=== PATIENT | male | born 1935 | race Caucasian/White ===

== ENCOUNTER 2016-09-30 18:57 | Inpatient (IN) | payer OTHER ==
[2016-09-30 19:26] VITALS: BMI 29.5
[2016-09-30] MEDS ORDERED: SODIUM CHLORIDE 1,000 ML IV STA (20:08)
--- NOTE | 2016-09-30 20:46 | PDOC ---
History of Present Illness - General History Source: Patient, EMS, Friend Exam Limitations: No Limitations - History of Present Illness Initial Comments: 09/30/16 20:47 The patient is an 81 year old male with past medical history of hyperlipidemia, BPH, and prostate carcinoma (follows up at [facility]) who arrives to the ED via EMS after being found on the floor of his house by his neighbors. As per neighbors, they hadnt seen the patient all day and knew he wasnt feeling well the day before. They state that when they found him, he was weak, cold, and had some slurred speech and was also covered in feces. They are unsure of how long the patient was on the floor for. The patient states he remembers feeling weak and falling, but cant recall hitting his head. He denies any pain, numbness/ tingling, nausea/vomiting/diarrhea, chest pain. He reports having orthopnea as well as urinary incontinence which he relates to his prostate carcinoma. Allergies: NKDA Social Hx: Patient lives alone at home. His neighbors check with him daily. He states he has a girlfriend in [place]. Contacts: Coco Nguyễn (neighbor): Brittany Steiner (friend): <Emelia Wallace - Last Filed: 10/01/16 00:21> - General History Source: Patient Exam Limitations: No Limitations <Connor Schmidt - Last Filed: 10/01/16 00:25> - General Chief Complaint: Injury Stated Complaint: FALL Time Seen by Provider: 09/30/16 19:17 Past History <Emelia Wallace - Last Filed: 10/01/16 00:21> - Past Medical History Disorders: Yes (BPH) Hypercholesterolemia: Yes - Surgical History Neurologic Surgery: Yes (SPINAL CYST REMOVAL) - Psycho/Social/Smoking Cessation Hx Anxiety: No Suicidal Ideation: No Smoking Status: No Smoking History: Never smoked Have you smoked in the past 12 months: No Number of Cigarettes Smoked Daily: 0 If you are a former smoker, when did you quit?: 30 YRS AGO Cigars Per Day: 1 Information on smoking cessation initiated: No Hx Alcohol Use: No Drug/Substance Use Hx: No Substance Use Type: None Hx Substance Use Treatment: No <Connor Schmidt - Last Filed: 10/01/16 00:25> - Past Medical History Allergies/Adverse Reactions: Allergies Allergy/AdvReac Type Severity Reaction Status Date / Time No Known Allergies Allergy Verified 09/30/16 19:22 Home Medications: Ambulatory Orders Atorvastatin Ca [Lipitor -] 20 mg PO DAILY 12/23/14 Tamsulosin HCl [Flomax] 0.4 mg PO DAILY 12/23/14 Review of Systems - Review of Systems Able to Perform ROS?: Yes Comments:: 09/30/16 20:47 GENERAL/CONSTITUTIONAL: Present: fever, weakness HEAD, EYES, EARS, NOSE AND THROAT: No change in vision. No ear pain or discharge. No sore throat. CARDIOVASCULAR: No chest pain or shortness of breath. RESPIRATORY: Present: orthopnea No cough, wheezing, or hemoptysis. GASTROINTESTINAL: No nausea, vomiting, diarrhea or constipation. GENITOURINARY: Present: incontinence No dysuria, frequency. MUSCULOSKELETAL: No joint or muscle swelling or pain. No neck or back pain. SKIN: No rash NEUROLOGIC: Present: LOC No headache, vertigo. ENDOCRINE: No increased thirst. No abnormal weight change. HEMATOLOGIC/LYMPHATIC: No anemia, easy bleeding, or history of blood clots. ALLERGIC/IMMUNOLOGIC: No hives or skin allergy. All Other Systems: Reviewed and Negative <Emelia Wallace - Last Filed: 10/01/16 00:21> *Physical Exam - Vital Signs Last Vital Signs Temp Pulse Resp BP Pulse Ox 98.0 F 70 16 182/56 98 09/30/16 19:22 09/30/16 19:22 09/30/16 19:22 09/30/16 19:22 09/30/16 19:22 - Physical Exam Comments: 09/30/16 20:49 GENERAL: Awake, febrile, and fully oriented, in no acute distress HEAD: 2 x 2 cm ecchymosis on superior scalp EYES: PERRLA, EOMI, sclera anicteric, conjunctiva clear ENT: Auricles normal inspection, hearing grossly normal, nares patent, oropharynx clear without exudates. Moist mucosa NECK: Normal ROM, supple, no lymphadenopathy, JVD, or masses LUNGS: Breath sounds equal, clear to auscultation bilaterally. No wheezes, and no crackles HEART: Regular rate and rhythm, normal S1 and S2, no murmurs, rubs or gallops ABDOMEN: Soft, nontender, normoactive bowel sounds. No guarding, no rebound. No masses EXTREMITIES: Normal range of motion, no edema. No clubbing or cyanosis. No cords, erythema, or tenderness NEUROLOGICAL: Cranial nerves II through XII grossly intact. Normal speech, normal gait SKIN: Warm, Dry, normal turgor, no rashes or lesions noted. <quocwilmerEmelia - Last Filed: 10/01/16 00:21> - Vital Signs Last Vital Signs Temp Pulse Resp BP Pulse Ox 98.0 F 70 16 182/56 98 09/30/16 19:22 09/30/16 19:22 09/30/16 19:22 09/30/16 19:22 09/30/16 19:22 <Connor Schmidt - Last Filed: 10/01/16 00:25> Heart Score/ECG Review #1 ECG reviewed & interpreted by me at: 19:15 09/30/16 21:23 NSR 75 with 1st degree AV block, no std,eber, QTC 448 msec <Connor Schmidt - Last Filed: 10/01/16 00:25> ED Treatment Course - LABORATORY CBC & Chemistry Diagram: 09/30/16 20:28 09/30/16 20:28 - RADIOLOGY Radiograph Interpretation: 10/01/16 00:21 EXAM: CT brain without contrast IMAGES: 85 INDICATION: Found down DATE OF SERVICE: 2016-09-30 23:32:32.0 COMPARISON: none FINDINGS: The ventricular system is midline and nondilated. Mild involutional changes are noted. There is no bleed, mass, extra-axial fluid collection or mass effect. No skull fracture or skull lesion is identified. The visualized paranasal sinuses and mastoid air cells are clear. <RodrigoEmelia - Last Filed: 10/01/16 00:21> - LABORATORY CBC & Chemistry Diagram: 09/30/16 20:28 09/30/16 20:28 - RADIOLOGY Radiology Studies Ordered: Category Date Time Status HEAD CT WITHOUT CONTRAST [CT] Stat CT Scan 09/30/16 20:07 Ordered CHEST X-RAY PORTABLE* [RAD] Stat Radiology 09/30/16 20:07 Ordered PELVIS [RAD] Stat Radiology 09/30/16 20:08 Ordered <Connor Schmidt - Last Filed: 10/01/16 00:25> Medical Decision Making - Medical Decision Making 10/01/16 00:21 Microblog sent to [facility] and call returned. Case discussed. <Emelia Wallace - Last Filed: 10/01/16 00:21> - Medical Decision Making 09/30/16 20:41 A portion of this note was documented by scribe services under my direction. I have reviewed the details of the note, within reason, and agree with the documentation with the following case summary and management plan written by me. Patient treated in the ED. Nursing notes are reviewed and incorporated into the medical decision-making. Vital signs reviewed. Peripheral IV access obtained by the nurse, laboratory studies are drawn and sent, reviewed and interpreted by myself. Vital Signs Temp Pulse Resp BP Pulse Ox 98.0 F 70 16 182/56 98 09/30/16 19:22 09/30/16 19:22 09/30/16 19:22 09/30/16 19:22 09/30/16 19:22 81-year-old male with history of BPH, prostate carcinoma, hyperlipidemia presents by EMS for found down on the ground. The patient lives by himself. Patient's neighbors had noted that the patient has been feeling generally weak for the last 2 days. They typically here from every day but noted today that they have not heard from them. They had broken down his door and saw him on his ground covered in feces. The patient is intermittent confused and noted to have a small ecchymosis on the top of his head. Patient denies any pain or headaches or nausea or vomiting. He does however complain of chills and generalized weakness. Likely I do not see an obvious fracture. However, I'm concerned for potentially sepsis and dehydration. Given that he's found on the ground, we'll send a CPK to rule out rhabdomyolysis. Patient needs a head CT to rule out intracranial hemorrhage. We'll need to rule out infection. Adult sepsis protocol initiated. Ultimately, the patient should be admitted to the hospital further evaluation. 10/01/16 00:23 CBC, BMP 09/30/16 20:28 09/30/16 20:28 CMP Sodium 135 mmol/L (136-145) L 09/30/16 20:28 Potassium 3.8 mmol/L (3.5-5.1) 09/30/16 20:28 Chloride 100 mmol/L (98-107) 09/30/16 20:28 Carbon Dioxide 22 mmol/L (21-32) 09/30/16 20:28 Anion Gap 13 (8-16) 09/30/16 20:28 BUN 36 mg/dL (7-18) H D 09/30/16 20:28 Creatinine 1.8 mg/dL (0.7-1.3) H D 09/30/16 20:28 Creat Clearance w eGFR 36.39 (>60) 09/30/16 20:28 Random Glucose 141 mg/dL (74-106) H D 09/30/16 20:28 Lactic Acid 3.2 mmol/L (0.4-2.0) H* 09/30/16 20:28 Calcium 8.7 mg/dL (8.5-10.1) 09/30/16 20:28 Total Bilirubin 1.2 mg/dL (0.2-1.0) H D 09/30/16 20:28 AST 75 U/L (15-37) H D 09/30/16 20:28 ALT 44 U/L (12-78) D 09/30/16 20:28 Alkaline Phosphatase 50 U/L (45-117) D 09/30/16 20:28 Creatine Kinase 1894 IU/L (39-308) H 09/30/16 20:28 Creatine Kinase Index 0.4 % (0.0-5.0) 09/30/16 20:28 CK-MB (CK-2) 7.005 ng/ml (0.5-3.6) H 09/30/16 20:28 CK-MB (CK-2) Rel Index Cancelled 09/30/16 20:28 Troponin I 0.22 ng/ml (0.00-0.05) H 09/30/16 20:28 Total Protein 7.9 g/dl (6.4-8.2) D 09/30/16 20:28 Albumin 3.5 g/dl (3.4-5.0) D 09/30/16 20:28 Urine Test Results Urine Color Yellow 09/30/16 22:38 Urine Appearance Cloudy 09/30/16 22:38 Urine pH 5.0 (5.0-8.0) 09/30/16 22:38 Urine Protein 2+ (NEGATIVE) H 09/30/16 22:38 Urine Glucose (UA) Negative (NEGATIVE) 09/30/16 22:38 Urine Ketones Trace (NEGATIVE) H 09/30/16 22:38 Urine Blood 3+ (NEGATIVE) H 09/30/16 22:38 Urine Nitrite Negative (NEGATIVE) 09/30/16 22:38 Urine Bilirubin Negative (NEGATIVE) 09/30/16 22:38 Ur Leukocyte Esterase Negative (NEGATIVE) 09/30/16 22:38 Urine RBC 3 /hpf (0-3) 09/30/16 22:38 Urine WBC 1 /hpf (3-5) 09/30/16 22:38 Ur Epithelial Cells Rare /hpf (FEW) 09/30/16 22:38 Urine Bacteria Rare /hpf (NONE SEEN) 09/30/16 22:38 Urine Mucus Rare 09/30/16 22:[address] is negative. Chest xray pending. Vanc and zosyn given. Trop of 0.22 is likely demand ischemia. Aspirin ordered. Has acute renal insufficiency. Case discussed with [facility]. Accepted for tele admission. Case discussed in detail with admitting physician including history, physical exam and ancillary studies. Admitting physician has assumed care for the patient, will follow all pending diagnostics and will complete the evaluation and treatment. <Connor Schmidt - Last Filed: 10/01/16 00:25> *DC/Admit/Observation/Transfer - Attestations Scribe Attestion: 09/30/16 20:50 Documentation prepared by Emelia Wallace, acting as biomedical service engineer for Connor Schmidt MD. <Emelia Wallace - Last Filed: 10/01/16 00:21> - Discharge Dispostion Admit: Yes <Connor Schmidt - Last Filed: 10/01/16 00:25> Diagnosis at time of Disposition: Elevated troponin level Sepsis Qualifiers: Sepsis type: sepsis due to unspecified organism Qualified Code(s): A41.9 - Sepsis, unspecified organism Acute renal failure Qualifiers: Acute renal failure type: unspecified Qualified Code(s): N17.9 - Acute kidney failure, unspecified Rhabdomyolysis Qualifiers: Rhabdomyolysis type: traumatic Encounter type: initial encounter Qualified Code (s): T79.6XXA - Traumatic ischemia of muscle, initial encounter - Discharge Dispostion Condition at time of disposition: Stable
[2016-09-30 20:50] LABS: BASOPHIL 0.2 % (0-2.0); MCH 30.7 pg (25.7-33.7); MCHC 33.5 g/dl (32.0-35.9); MEAN CELL VOLUME 91.8 fl (80-96); MEAN PLT VOLUME 10.3 fl (7.5-11.1); NEUTROPHILS 88.4 % (42.8-82.8); PLATELET COUNT 104 K/MM3 (134-434); RDW 13.5 % (11.9-15.9); WHITE BLOOD COUNT 14.2 K/mm3 (4.0-10.0)
[2016-09-30] MEDS ORDERED: ACETAMINOPHEN 1000 MG/100 ML VIAL (NON FORMULARY) IVPB ONE (20:51)
[2016-09-30] MEDS ORDERED: PIPERACILLIN/TAZOB 3.375 GM/50 ML PRE-DOCKED IVPB ONE (20:52)
[2016-09-30] MEDS ORDERED: VANCOMYCIN 1,000 MG in DEXTROSE 5%-WATER - 250 ML IVPB ONE (20:52)
[2016-09-30 21:04] LABS: INR 1.15 (0.82-1.09); PROTHROMBIN TIME (PATIENT) 12.7 SEC (9.98-11.88)
[2016-09-30 21:06] LABS: ACTIVATED PTT 33.3 SECONDS (26.9-34.4)
[2016-09-30] MEDS ORDERED: ACETAMINOPHEN INJECTION 100 ML IVPB ONE (21:11)
[2016-09-30] MEDS ORDERED: VANCOMYCIN 1 GRAM (PRE-DOCKED) 250 ML IVPB ONE (21:11)
[2016-09-30 21:13] LABS: ALBUMIN 3.5 g/dl (3.4-5.0); ANION GAP 13 (8-16); BILIRUBIN,TOTAL 1.2 mg/dL (0.2-1.0); CALCIUM 8.7 mg/dL (8.5-10.1); CO2 22 mmol/L (21-32); CREATININE 1.8 mg/dL (0.7-1.3); GLUCOSE,RANDOM 141 mg/dL (74-106); SGOT/AST 75 U/L (15-37); SGPT/ALT 44 U/L (12-78); TOT PROT 7.9 g/dl (6.4-8.2)
[2016-09-30 21:15] LABS: ALK PHOS 50 U/L (45-117); TROPONIN I 0.22 ng/ml (0.00-0.05)
[2016-09-30 22:48] LABS: URINE APPEARANCE CLOUDY; URINE BILIRUBIN NEGATIVE (NEGATIVE); URINE COLOR YELLOW; URINE GLUCOSE (UA) NEGATIVE (NEGATIVE); URINE KETONE TRACE (NEGATIVE); URINE LEUK ESTERASE NEGATIVE (NEGATIVE); URINE NITRITE NEGATIVE (NEGATIVE); URINE UROBILINOGEN NEGATIVE mg/dL (0.2-1.0)
[2016-09-30 22:52] LABS: URINE BLOOD 3+ (NEGATIVE); URINE PROTEIN 2+ (NEGATIVE)
[2016-09-30 22:53] LABS: URINE BACTERIA RARE /hpf (NONE SEEN); URINE HYALINE CAST 1 /lpf; URINE MUCUS RARE; URINE RBC 3 /hpf (0-3); URINE WBC 1 /hpf (3-5)
[2016-09-30] MEDS ORDERED: PIPERACILLIN/TAZOB 3.375 GM 50 ML IVPB ONE (23:28)
[2016-10-01] MEDS ORDERED: ACETAMINOPHEN 325 MG TABLET (FP) PO PRN (00:43)
[2016-10-01] MEDS ORDERED: SODIUM CHLORIDE 1,000 ML IV SCH (00:45)
--- NOTE | 2016-10-01 00:46 | HP ---
CHIEF COMPLAINT: found on floor by neighbors PCP: Dr. Rita Tracy, Urology: Jessica ([facility]), Oncology: Heaven ([facility]) HISTORY OF PRESENT ILLNESS: This is an 81 year old male with a past medical history of Hyperlipidemia, BPH, Prostate CA, PVD presented to the ED from home via ambulance. Neighbors noted they had not seen pt at all today and he had mentioned he was not feeling well yesterday so they went inside to check on him and found him on the floor. Pt reports he had fallen twice today; once this morning out of bed around 5am and eventually he was able to get up and go back to bed. He then later fell while getting something to drink and was unable to get up and that is where his neighbors found him. He reports he has been feeling unwell since . He denies pain, SOB, chest pain, cough, dysuria, frequency. ER course was notable for: (1) WBC 14.2 (2) rectal temp 102 (3) Lactic acid Recent Travel: pt denies PAST MEDICAL HISTORY: Hyperlipidemia "slow heart beat" BPH Prostate CA (last chemo last year) PVD PAST SURGICAL HISTORY: Left fem-pop bypass spinal cystectomy 40 years ago Social History: Smoking: quit 25 years ago, 2ppd x 30 years Alcohol: occasional, 1-2 x / month, 2 beers Drugs: pt denies Family History: mother age 84, old age, no PMH father age 77, [place], h/o cancer, unknown type brother age 60s, cancer-some type of urinary tract 2 half sister, alive and well son age 56, cancer-some type of urinary tract daughter, alive, elevated cholesterol Allergies No Known Allergies Allergy (Verified 09/30/16 19:22) HOME MEDICATIONS: 3 Medication Instructions Recorded Atorvastatin Ca [Lipitor -] 20 mg PO DAILY 12/23/14 Tamsulosin HCl [Flomax] 0.4 mg PO DAILY 12/23/14 REVIEW OF SYSTEMS CONSTITUTIONAL: Present: fever, generalized weakness, malaise Absent: chills, diaphoresis, loss of appetite, weight change HEENT: Absent: rhinorrhea, nasal congestion, throat pain, throat swelling, difficulty swallowing, mouth swelling, ear pain, eye pain, visual changes CARDIOVASCULAR: Absent: chest pain, syncope, palpitations, irregular heart rate, lightheadedness , peripheral edema RESPIRATORY: Absent: cough, shortness of breath, dyspnea with exertion, orthopnea, wheezing, stridor, hemoptysis GASTROINTESTINAL: Absent: abdominal pain, abdominal distension, nausea, vomiting, diarrhea, constipation, melena, hematochezia GENITOURINARY: Absent: dysuria, frequency, urgency, hesitancy, hematuria, flank pain, genital pain MUSCULOSKELETAL: Absent: myalgia, arthralgia, joint swelling, back pain, neck pain SKIN: Absent: rash, itching, pallor HEMATOLOGIC/IMMUNOLOGIC: Absent: easy bleeding, easy bruising, lymphadenopathy, frequent infections ENDOCRINE: Absent: unexplained weight gain, unexplained weight loss, heat intolerance, cold intolerance NEUROLOGIC: Absent: headache, focal weakness or paresthesias, dizziness, unsteady gait, seizure, mental status changes, bladder or bowel incontinence PSYCHIATRIC: Absent: anxiety, depression, suicidal or homicidal ideation, hallucinations. PHYSICAL EXAMINATION Vital Signs - 24 hr 3 09/30/16 09/30/16 10/01/16 10/01/16 19:22 20:00 01:19 01:28 Temperature 98.0 F 102.4 F H 100.2 F H Pulse Rate 70 65 Pulse Rate [ 57 L Left] Respiratory 16 20 17 Rate Blood Pressure 182/56 182/56 Blood Pressure 121/62 [Left] O2 Sat by Pulse 98 98 95 Oximetry (%) GENERAL: Awake, alert, and fully oriented, in no acute distress. HEAD: Normal with no signs of trauma. EYES: Pupils equal, round and reactive to light, extraocular movements intact, sclera anicteric, conjunctiva clear. No lid lag. EARS, NOSE, THROAT: Ears normal, nares patent, oropharynx clear without exudates. Moist mucous membranes. NECK: Normal range of motion, supple without lymphadenopathy, JVD, or masses. LUNGS: Breath sounds equal, clear to auscultation bilaterally. No wheezes, and no crackles. No accessory muscle use. HEART: Regular rate and rhythm, normal S1 and S2 without murmur, rub or gallop. ABDOMEN: Soft, nontender, not distended, normoactive bowel sounds, no guarding, no rebound, no masses. No hepatomegaly or splenomegaly. MUSCULOSKELETAL: Normal range of motion at all joints. No bony deformities or tenderness. No CVA tenderness. UPPER EXTREMITIES: 2+ pulses, warm, well-perfused. No cyanosis. No clubbing. No peripheral edema. LOWER EXTREMITIES: 2+ pulses, warm, well-perfused. No calf tenderness. No peripheral edema. NEUROLOGICAL: Cranial nerves II-XII intact. Normal speech. Normal gait. PSYCHIATRIC: Cooperative. Good eye contact. Appropriate mood and affect. SKIN: Warm, dry, normal turgor, no rashes noted, normal capillary refill. small abrasions left leonardo, knee and elbow Laboratory Results - last 24 hr 3 09/30/16 09/30/16 09/30/16 20:28 20:28 20:28 WBC 14.2 H D RBC 4.93 D Hgb 15.1 D Hct 45.2 D MCV 91.8 MCH 30.7 MCHC 33.5 RDW 13.5 Plt Count 104 L D MPV 10.3 Neutrophils % 88.4 H D Lymphocytes % 5.8 L D Monocytes % 5.6 Eosinophils % 0.0 Basophils % 0.2 INR 1.15 H PTT (Actin FS) 33.3 Sodium 135 L Potassium 3.8 Chloride 100 Carbon Dioxide 22 Anion Gap 13 BUN 36 H D Creatinine 1.8 H D Creat Clearance w eGFR 36.39 Random Glucose 141 H D Lactic Acid 3.2 H* Calcium 8.7 Total Bilirubin 1.2 H D AST 75 H D ALT 44 D Alkaline Phosphatase 50 D Creatine Kinase 1894 H Creatine Kinase Index 0.4 CK-MB (CK-2) 7.005 H CK-MB (CK-2) Rel Index Troponin I 0.22 H Total Protein 7.9 D Albumin 3.5 D Urine Color Urine Appearance Urine pH Urine Protein Urine Glucose (UA) Urine Ketones Urine Blood Urine Nitrite Urine Bilirubin Urine Urobilinogen Ur Leukocyte Esterase Urine RBC Urine WBC Ur Epithelial Cells Urine Bacteria Hyaline Casts Urine Mucus Blood Type Antibody Screen Spec Expiration Date 3 Urine Color Yellow 09/30/16 22:38 Urine Appearance Cloudy 09/30/16 22:38 Urine pH 5.0 (5.0-8.0) 09/30/16 22:38 Urine Protein 2+ (NEGATIVE) H 09/30/16 22:38 Urine Glucose (UA) Negative (NEGATIVE) 09/30/16 22:38 Urine Ketones Trace (NEGATIVE) H 09/30/16 22:38 Urine Blood 3+ (NEGATIVE) H 09/30/16 22:38 Urine Nitrite Negative (NEGATIVE) 09/30/16 22:38 Urine Bilirubin Negative (NEGATIVE) 09/30/16 22:38 Ur Leukocyte Esterase Negative (NEGATIVE) 09/30/16 22:38 Urine RBC 3 /hpf (0-3) 09/30/16 22:38 Urine WBC 1 /hpf (3-5) 09/30/16 22:38 Ur Epithelial Cells Rare /hpf (FEW) 09/30/16 22:38 Urine Bacteria Rare /hpf (NONE SEEN) 09/30/16 22:38 Urine Mucus Rare 09/30/16 22:38 CXR pending ECG: NSR with occ APC, rate75, QTC 448, no ST/T wave changes ASSESSMENT/PLAN: 81yM with PMH HLD, BPH, Prostate CA, PVD who presented to ED after being FOF, generalized malaise x 3 days. He is being admitted for further evaluation and treatment. Rhabdomyolysis, mild - Received NS bolus x 1L in ED, continue 150cc/hr - supportive care, monitor urine output - monitor renal function SIRS - unclear etiology- ? fever due to rhabdo - ?possible tick borne disease; will obtain lyme and babesiosis titers, one time dose doxycycline - given zosyn and vancomycin in ED, will hold further antibiotic for now as unclear source. - repeat troponin - ID consult HLD - hold statin for now BPH - cont flomax DVT PPX - heparin 5000u BID FEN - NS @ 150cc/hr - Repeat BMP in am with Mg and Phos - Regular diet Dispo: Pt currently requires inpatient management of his emergent conditions. Visit type - Emergency Visit Emergency Visit: Yes ED Registration Date: 09/30/16 Care time: The patient presented to the Emergency Department on the above date and was hospitalized for further evaluation of their emergent condition. - New Patient This patient is new to me today: Yes Date on this admission: 10/01/16 - Critical Care Critical Care patient: No
[2016-10-01] MEDS ORDERED: ASPIRIN 81 MG CHEWABLE TABLETS ONE (01:21)
[2016-10-01] MEDS: SODIUM CHLORIDE 1,000 ML IV SCH (02:00)
[2016-10-01] MEDS ORDERED: DOXYCYCLINE INJECTION 100 MG in DEXTROSE 5%-WATER - 100 ML IVPB ONE (02:00)
[2016-10-01] MEDS ORDERED: DOXYCYCLINE HYCLATE 100 MG VIAL ONE (02:27)
[2016-10-01 05:46] LABS: ANION GAP 10 (8-16); CALCIUM 8.2 mg/dL (8.5-10.1); CO2 24 mmol/L (21-32); GLUCOSE,RANDOM 120 mg/dL (74-106); MAGNESIUM 2.1 mg/dL (1.8-2.4); TROPONIN I 0.16 ng/ml (0.00-0.05)
[2016-10-01 05:48] LABS: CREATININE 1.8 mg/dL (0.7-1.3); PHOSPHOROUS 3.5 mg/dL (2.5-4.9)
[2016-10-01] MEDS ORDERED: ACETAMINOPHEN 325 MG TABLET (FP) ONE ×2 (05:56→08:39)
[2016-10-01 07:56] LABS: BASOPHIL 0.3 % (0-2.0); MCH 31.8 pg (25.7-33.7); MCHC 34.9 g/dl (32.0-35.9); MEAN CELL VOLUME 91.1 fl (80-96); MEAN PLT VOLUME 10.3 fl (7.5-11.1); NEUTROPHILS 86.2 % (42.8-82.8); PLATELET COUNT 78 K/MM3 (134-434); RDW 13.5 % (11.9-15.9); WHITE BLOOD COUNT 10.2 K/mm3 (4.0-10.0)
[2016-10-01] MEDS ORDERED: TAMSULOSIN HCL 0.4 MG CAP.ER.24H (FP) ONE (08:39)
[2016-10-01] MEDS: TAMSULOSIN HCL 0.4 MG CAP.ER.24H (FP) PO SCH (08:42)
[2016-10-01 08:44] LABS: TROPONIN I 0.19 ng/ml (0.00-0.05)
[2016-10-01] MEDS: ASPIRIN 81 MG CHEWABLE TABLETS PO SCH (10:09)
[2016-10-01] MEDS: HEPARIN NA (PORCINE) 5,000 UNITS/ML 1ML VIAL SQ SCH ×2 (10:09→22:33)
--- NOTE | 2016-10-01 12:37 | EKG ---
Test Reason : Blood Pressure : / mmHG Vent. Rate : 075 BPM Atrial Rate : 075 BPM P-R Int : 202 ms QRS Dur : 098 ms QT Int : 402 ms P-R-T Axes : 080 -15 022 degrees QTc Int : 448 ms SINUS RHYTHM WITH PREMATURE SUPRAVENTRICULAR COMPLEXES OTHERWISE NORMAL ECG WHEN COMPARED WITH ECG OF 14-DEC-2011 00:21, PREMATURE SUPRAVENTRICULAR COMPLEXES ARE NOW PRESENT Confirmed by SIMA SCHOFIELD MD ([id number]) on 10/01/2016 12:37:19 PM Referred By: Confirmed By:SIMA SCHOFIELD MD
[2016-10-01] MEDS: NYSTATIN 500,000 UNITS/5 ML SUSPENSION PO SCH ×2 (13:05→18:21)
[2016-10-01] MEDS ORDERED: CEFTRIAXONE 1 GM in DEXTROSE 5%-WATER - 50 ML IVPB SCH (16:30)
--- NOTE | 2016-10-01 16:30 | CONSULT ---
Consult Consult Specialty:: infectious diseases Reason for Consultation:: fever,back pain - History of Present Illness Chief Complaint: fever, fall weakness History of Present Illness: 81 year old male with a past medical history of Hyperlipidemia, BPH, Prostate CA , PVD admitted because of fever. according to the history obtained it was the neighbour did not see him so they went inside to check on him and found on the floor' Pt reports he had fallen twice today;but he did not loose consciousness he knew he was falling ,patient mentions that his leg just could not hold him and they gave way He reports he has been feeling unwell since . He denies pain, SOB, chest pain, cough, dysuria, frequency. [place] and it is about a week he has been back.it seems he was there for couple of weeks he also mentions that he was not able to hold his stool but he had it only once - History Source History Provided By: Patient, Medical Record Limitations to Obtaining History: No Limitations - Alcohol/Substance Use Hx Alcohol Use: No - Smoking History Smoking history: Never smoked Have you smoked in the past 12 months: No Aproximately how many cigarettes per day: 0 If you are a former smoker, when did you quit?: 30 YRS AGO Home Medications - Allergies Allergies/Adverse Reactions: Allergies Allergy/AdvReac Type Severity Reaction Status Date / Time No Known Allergies Allergy Verified 09/30/16 19:22 - Home Medications Home Medications: Ambulatory Orders Atorvastatin Ca [Lipitor -] 20 mg PO DAILY 12/23/14 Tamsulosin HCl [Flomax] 0.4 mg PO DAILY 12/23/14 Review of Systems - Review of Systems Constitutional: reports: Chills, Fever Eyes: reports: No Symptoms HENT: reports: No Symptoms Neck: reports: No Symptoms Cardiovascular: reports: No Symptoms Respiratory: reports: Cough Gastrointestinal: reports: Other Musculoskeletal: reports: Muscle Weakness, Other Integumentary: reports: No Symptoms Neurological: reports: Tremors, Unsteady Gait, Weakness Endocrine: reports: No Symptoms Hematology/Lymphatic: reports: No Symptoms Psychiatric: reports: No Symptoms Physical Exam Vital Signs: Vital Signs Temperature 100.6 F H 10/01/16 12:19 Pulse Rate 69 10/01/16 10:45 Respiratory Rate 20 10/01/16 10:45 Blood Pressure 116/57 10/01/16 10:45 O2 Sat by Pulse Oximetry (%) 93 L 10/01/16 10:45 Constitutional: Yes: Calm, Mild Distress, Other Eyes: Yes: Conjunctiva Clear HENT: Yes: Atraumatic, Normocephalic Neck: Yes: Supple, Trachea Midline Cardiovascular: Yes: Regular Rate and Rhythm, S1, S2 Respiratory: Yes: Regular, Poor Air Entry Gastrointestinal: Yes: Normal Bowel Sounds, Soft Musculoskeletal: Yes: WNL Extremities: Yes: WNL Integumentary: Yes: Bruising (on the forehead and other places probably due to fall) Wound/Incision: Yes: Clean/Dry Neurological: Yes: Alert, Oriented Psychiatric: Yes: Alert Labs: CBC, BMP 10/01/16 07:50 10/01/16 05:12 Imaging - Results Chest X-ray: Report Reviewed, Image Reviewed Cat Scan: Report Reviewed, Image Reviewed Assessment/Plan looking at the patient there are couple of things' [place] and possibility of tick bite exists giving rise to his neurological condition of weakness,but it is little out of the way also i am worried with fever back pain and the leg weakness there is a chance he could ahve spinal abscess also all of his symptoms could be due to rhabdo itself 81yM with PMH HLD, BPH, Prostate CA, PVD who presented to ED after being FOF, generalized malaise x 3 days. He is being admitted for further evaluation and treatment. Rhabdomyolysis, SIR HLD BPH fever lower ext weakness plan hold stating for now i am going to give him abx including doxy mri of the spine await for all results tests for parasite continue to monitor
[2016-10-01] MEDS ORDERED: CEFTRIAXONE 50 ML ONE (16:50)
[2016-10-01] MEDS: DOXYCYCLINE INJECTION 100 MG in DEXTROSE 5%-WATER - 100 ML IVPB SCH (22:32)
[2016-10-02] MEDS: NYSTATIN 500,000 UNITS/5 ML SUSPENSION PO SCH ×5 (00:30→23:36)
[2016-10-02] MEDS: SODIUM CHLORIDE 1,000 ML IV SCH ×2 (02:26→23:37)
[2016-10-02 08:21] LABS: BASOPHIL 0.1 % (0-2.0); MCH 31.4 pg (25.7-33.7); MEAN CELL VOLUME 92.4 fl (80-96); MEAN PLT VOLUME 10.6 fl (7.5-11.1); PLATELET COUNT 75 K/MM3 (134-434); WHITE BLOOD COUNT 5.9 K/mm3 (4.0-10.0)
[2016-10-02 08:37] LABS: ANION GAP 10 (8-16); CALCIUM 7.6 mg/dL (8.5-10.1); CO2 25 mmol/L (21-32); GLUCOSE,RANDOM 97 mg/dL (74-106); MAGNESIUM 2.2 mg/dL (1.8-2.4)
[2016-10-02 08:38] LABS: CREATININE 1.5 mg/dL (0.7-1.3); PHOSPHOROUS 2.9 mg/dL (2.5-4.9)
[2016-10-02] MEDS: CEFTRIAXONE 50 ML IVPB SCH (09:09)
[2016-10-02] MEDS: TAMSULOSIN HCL 0.4 MG CAP.ER.24H (FP) PO SCH (09:09)
[2016-10-02] MEDS: HEPARIN NA (PORCINE) 5,000 UNITS/ML 1ML VIAL SQ SCH ×2 (09:09→21:56)
[2016-10-02] MEDS: ASPIRIN 81 MG CHEWABLE TABLETS PO SCH (09:10)
[2016-10-02] MEDS ORDERED: VANCOMYCIN 1,250 MG in DEXTROSE 5%-WATER - 250 ML IVPB SCH (10:00)
[2016-10-02] MEDS: DOXYCYCLINE INJECTION 100 MG in DEXTROSE 5%-WATER - 100 ML IVPB SCH ×2 (10:24→21:56)
--- NOTE | 2016-10-02 10:45 | PN ---
Physical Exam: SUBJECTIVE: Patient seen and examined oob to chair. He says he is feeling much better than yesterday. Denies fever and chills overnight. OBJECTIVE: Vital Signs Period Temp Pulse Resp BP Sys/Paris Pulse Ox Last 24 Hr 98 F-100.6 F 58-84 16-20 116-157/53-73 3-98 PE Neuro: alert, awake, cn 2-12intact HEENT: front head abrasion dry Pulm: bibasilar crackles CV: s1 s2 rrr no mrg Abd: s nt nd +bs Ext: no le edema, well perfused Laboratory Results - last 24 hr 10/02/16 10/02/16 10/02/16 05:55 05:55 05:55 WBC 5.9 D RBC 4.20 Hgb 13.2 Hct 38.8 MCV 92.4 MCH 31.4 MCHC 34.0 RDW 14.0 Plt Count 75 L MPV 10.6 Neutrophils % 73.0 Lymphocytes % 17.8 D Monocytes % 9.1 Eosinophils % 0.0 Basophils % 0.1 Sodium 140 Potassium 3.7 Chloride 105 Carbon Dioxide 25 Anion Gap 10 BUN 34 H Creatinine 1.5 H Random Glucose 97 Calcium 7.6 L Phosphorus 2.9 Magnesium 2.2 Creatine Kinase 1259 H D Cancelled CK-MB (CK-2) Rel Index Troponin I 0.10 H D Cancelled 10/01/16 07:50 Babesia Performed By Pending Babesia microti IgG Ab Pending Babesia microti IgM Ab Pending Lyme Screen IgG & IgM Pending Active Medications Generic Name Dose Route Start Last Admin Trade Name Amadou PRN Reason Stop Dose Admin Acetaminophen 650 mg 10/01/16 00:43 10/01/16 06:02 Tylenol - PO 650 mg Q4H PRN Administration FEVER Aspirin 162 mg 10/01/16 10:00 10/02/16 09:10 Asa - PO 162 mg DAILY [facility] Administration Heparin Sodium (Porcine) 5,000 unit 10/01/16 10:00 10/02/16 09:09 Heparin - SQ 5,000 unit BID [facility] Administration Sodium Chloride 1,000 mls @ 150 mls/hr 10/01/16 02:04 10/02/16 02:26 Normal Saline - IV 150 mls/hr ASDIR [facility] Administration Vancomycin HCl 1,250 mg/ 250 mls @ 166.667 mls/hr 10/02/16 10:00 10/02/16 10:24 Dextrose IVPB 166.667 mls/hr DAILY [facility] Administration Protocol Doxycycline Hyclate 100 mg/ 100 mls @ 100 mls/hr 10/01/16 22:00 10/02/16 10:24 Dextrose IVPB 100 mls/hr BID [facility] Administration Ceftriaxone Sodium 50 mls @ 100 mls/hr 10/01/16 16:45 10/02/16 09:09 Rocephin 1gm Ivpb (Pre-Docked) IVPB 100 mls/hr DAILY [facility] Administration Nystatin 500,000 units 10/01/16 12:15 10/02/16 06:26 Nystatin Oral Suspension - PO 500,000 units Q6HPO [facility] Administration Tamsulosin HCl 0.4 mg 10/01/16 08:30 10/02/16 09:09 Flomax - PO 0.4 mg DAILY@0830 [facility] Administration Microbiology 09/30/16 22:38 Urine - Urine - Catheterized Urine Culture - Final NO GROWTH OBTAINED 10/01/16 13:38 Blood - Peripheral Venous Blood Parasites Smear ([place]) - Final 09/30/16 20:20 Blood - Peripheral Venous Blood Culture - Preliminary NO GROWTH OBTAINED AFTER 24 HOURS, INCUBATION TO CONTINUE FOR 4 DAYS. 09/30/16 20:20 Blood - Peripheral Venous Blood Culture - Preliminary NO GROWTH OBTAINED AFTER 24 HOURS, INCUBATION TO CONTINUE FOR 4 DAYS. Assessment: 81 year old male with PMH HLD, BPH, Prostate CA, PVD admitted s/p fall, generalized malaise x 3 days and persistent fever. Plan: 1. Fever of unknown origin/SIRS - Lyme/Babesia/ehrlichia pending, once resulted repeat levels again - Tomorrow resend blood parasite smear - MRI no sign of spinal abscess, there is spinal stenosis c4-c5, c5-c6 - Stop vanco today - Continue empiric doxy/ceftriaxone for now - D/w ID 2. Thrombocytopenia - Possible due to infectious process - Will stop ASA - Trend cbc 3. Rhabdomyolysis, mild - CPK improving - Continue IVF 150cc/hr 4. DAVID - Improving with fluids 5. HLD - Hold statin for now 6. BPH - Cont flomax 7. DVT PPX - Can keep Heparin 5000u BID - Monitor plts Visit type - Emergency Visit Emergency Visit: Yes ED Registration Date: 10/01/16 Care time: The patient presented to the Emergency Department on the above date and was hospitalized for further evaluation of their emergent condition. - New Patient This patient is new to me today: No - Critical Care Critical Care patient: No
--- NOTE | 2016-10-02 15:30 | PN ---
Progress Note, Physician History of Present Illness: patient looking much better feels much better now - Current Medication List Current Medications: Active Medications Acetaminophen (Tylenol -) 650 mg PO Q4H PRN PRN Reason: FEVER Last Admin: 10/01/16 06:02 Dose: 650 mg Heparin Sodium (Porcine) (Heparin -) 5,000 unit SQ BID [facility] Last Admin: 10/02/16 09:09 Dose: 5,000 unit Sodium Chloride (Normal Saline -) 1,000 mls @ 150 mls/hr IV ASDIR [facility] Last Admin: 10/02/16 02:26 Dose: 150 mls/hr Vancomycin HCl 1,250 mg/ (Dextrose) 250 mls @ 166.667 mls/hr IVPB DAILY [facility] PRN Reason: Protocol Last Admin: 10/02/16 10:24 Dose: 166.667 mls/hr Doxycycline Hyclate 100 mg/ (Dextrose) 100 mls @ 100 mls/hr IVPB BID [facility] Last Admin: 10/02/16 10:24 Dose: 100 mls/hr Ceftriaxone Sodium (Rocephin 1gm Ivpb (Pre-Docked)) 50 mls @ 100 mls/hr IVPB DAILY [facility] Last Admin: 10/02/16 09:09 Dose: 100 mls/hr Nystatin (Nystatin Oral Suspension -) 500,000 units PO Q6HPO [facility] Last Admin: 10/02/16 12:11 Dose: 500,000 units Tamsulosin HCl (Flomax -) 0.4 mg PO DAILY@0830 [facility] Last Admin: 10/02/16 09:09 Dose: 0.4 mg - Objective Vital Signs: Vital Signs Temperature 98.2 F 10/02/16 14:19 Pulse Rate 60 10/02/16 14:19 Respiratory Rate 18 10/02/16 14:19 Blood Pressure 122/63 10/02/16 14:19 O2 Sat by Pulse Oximetry (%) 98 10/02/16 08:00 Constitutional: Yes: No Distress, Calm Neck: Yes: Supple Cardiovascular: Yes: Regular Rate and Rhythm Respiratory: Yes: Regular, CTA Bilaterally Gastrointestinal: Yes: Normal Bowel Sounds, Soft Musculoskeletal: Yes: Other Extremities: Yes: WNL Wound/Incision: Yes: Clean/Dry Neurological: Yes: Alert, Oriented Psychiatric: Yes: Alert Labs: CBC, BMP 10/02/16 05:55 10/02/16 05:55 INR, PTT INR 1.15 (0.82-1.09) H 09/30/16 20:28 - ....Imaging MRI: Report Reviewed, Image Reviewed Assessment/Plan ist set of report negative on parasite,looks more likely his fever could be due to rhabdo 81yM with PMH HLD, BPH, Prostate CA, PVD who presented to ED after being FOF, generalized malaise x 3 days. He is being admitted for further evaluation and treatment. Rhabdomyolysis, SIR HLD BPH fever lower ext weakness plan will start deescalating abx vanco stopped continue ceftriaxone and doxy for now probably will stop ceftriaxone tomorrow rest continue hydration and monitoring his rhabdo rest as per primary
[2016-10-03] MEDS: SODIUM CHLORIDE 1,000 ML IV SCH ×3 (06:26→17:11)
[2016-10-03] MEDS: NYSTATIN 500,000 UNITS/5 ML SUSPENSION PO SCH ×4 (06:27→23:24)
[2016-10-03 07:47] LABS: BASOPHIL 0.5 % (0-2.0); EOSINOPHIL 1.3 % (0-4.5); MCH 31.5 pg (25.7-33.7); MCHC 34.4 g/dl (32.0-35.9); MEAN CELL VOLUME 91.5 fl (80-96); MEAN PLT VOLUME 10.1 fl (7.5-11.1); NEUTROPHILS 60.2 % (42.8-82.8); PLATELET COUNT 76 K/MM3 (134-434); RDW 13.9 % (11.9-15.9); WHITE BLOOD COUNT 4.1 K/mm3 (4.0-10.0)
[2016-10-03 08:41] LABS: ALBUMIN 2.3 g/dl (3.4-5.0); ALK PHOS 44 U/L (45-117); ANION GAP 9 (8-16); BILIRUBIN,TOTAL 0.5 mg/dL (0.2-1.0); CALCIUM 7.7 mg/dL (8.5-10.1); CO2 22 mmol/L (21-32); CREATININE 1.1 mg/dL (0.7-1.3); GLUCOSE,RANDOM 91 mg/dL (74-106); SGOT/AST 183 U/L (15-37); SGPT/ALT 183 U/L (12-78); TOT PROT 5.3 g/dl (6.4-8.2); TROPONIN I 0.06 ng/ml (0.00-0.05)
[2016-10-03] MEDS ORDERED: PT OWN MED DRAWER 7, Y5N ONE (09:30)
[2016-10-03] MEDS: DOXYCYCLINE INJECTION 100 MG in DEXTROSE 5%-WATER - 100 ML IVPB SCH ×2 (09:32→21:40)
[2016-10-03] MEDS: TAMSULOSIN HCL 0.4 MG CAP.ER.24H (FP) PO SCH (09:32)
[2016-10-03] MEDS: CEFTRIAXONE 50 ML IVPB SCH (09:32)
[2016-10-03] MEDS: HEPARIN NA (PORCINE) 5,000 UNITS/ML 1ML VIAL SQ SCH ×2 (09:36→21:40)
--- NOTE | 2016-10-03 09:38 | PN ---
Physical Exam: SUBJECTIVE: Patient seen and examined at bedside. States he remains fatigued with generalized malaise. Denies chills, dysuria, cough, nausea, vomiting, diarrhea, headaches, chest pain, or dizziness. OBJECTIVE: Vital Signs 3 Period Temp Pulse Resp BP Sys/Paris Pulse Ox Last 24 Hr 97.9 F-98.8 F 54-665 18-20 104-149/50-82 96 GENERAL: The patient is awake, alert, and fully oriented, in no acute distress. HEAD: Resolving ecchymoses x3 to forehead. EYES: PERRL, extraocular movements intact, sclera anicteric, conjunctiva clear. No ptosis. LUNGS: Breath sounds equal, clear to auscultation bilaterally, no wheezes or accessory muscle use. HEART: Regular rate and rhythm, S1, S2 without murmur. ABDOMEN: Soft, nontender, mildly distended, normoactive bowel sounds, no guarding present. EXTREMITIES: 2+ pulses, warm, well-perfused, no edema. NEUROLOGICAL: Cranial nerves II through XII grossly intact. Normal speech, gait not observed. PSYCH: Normal mood, normal affect. SKIN: Warm, dry, normal turgor, no rashes or lesions noted. Resolving ecchymoses x3 to forehead. Laboratory Results - last 24 hr 3 10/01/16 10/02/16 10/02/16 07:50 05:55 05:55 WBC RBC Hgb Hct MCV MCH MCHC RDW Plt Count MPV Neutrophils % Lymphocytes % Monocytes % Eosinophils % Basophils % Sodium 140 Potassium 3.7 Chloride 105 Carbon Dioxide 25 Anion Gap 10 BUN 34 H Creatinine 1.5 H Creat Clearance w eGFR Random Glucose 97 Calcium 7.6 L Phosphorus 2.9 Magnesium 2.2 Total Bilirubin AST ALT Alkaline Phosphatase Creatine Kinase 1259 H D Creatine Kinase Index 0.2 CK-MB (CK-2) 2.808 CK-MB (CK-2) Rel Index Cancelled Troponin I 0.10 H D Total Protein Albumin Lyme Screen IgG & IgM <0.91 3 10/03/16 10/03/16 10/03/16 06:28 06:28 06:28 WBC 4.1 D RBC 3.84 L Hgb 12.1 Hct 35.1 L MCV 91.5 MCH 31.5 MCHC 34.4 RDW 13.9 Plt Count 76 L MPV 10.1 Neutrophils % 60.2 Lymphocytes % 28.1 D Monocytes % 9.9 Eosinophils % 1.3 D Basophils % 0.5 D Sodium 141 Potassium 3.5 Chloride 110 H Carbon Dioxide 22 Anion Gap 9 BUN 30 H Creatinine 1.1 D Creat Clearance w eGFR > 60 Random Glucose 91 Calcium 7.7 L Phosphorus Magnesium Total Bilirubin 0.5 D AST 183 H D ALT 183 H D Alkaline Phosphatase 44 L Creatine Kinase 822 H D Creatine Kinase Index 0.4 CK-MB (CK-2) 3.321 CK-MB (CK-2) Rel Index Cancelled Troponin I 0.06 H D Total Protein 5.3 L D Albumin 2.3 L D Lyme Screen IgG & IgM Active Medications 3 Generic Name Dose Route Start Last Admin Trade Name Freq PRN Reason Stop Dose Admin Acetaminophen 650 mg 10/01/16 00:43 10/01/16 06:02 Tylenol - PO 650 mg Q4H PRN Administration FEVER Heparin Sodium (Porcine) 5,000 unit 10/01/16 10:00 10/03/16 09:36 Heparin - SQ 5,000 unit BID [facility] Administration Sodium Chloride 1,000 mls @ 150 mls/hr 10/01/16 02:04 10/03/16 06:27 Normal Saline - IV 150 mls/hr ASDIR [facility] Administration Doxycycline Hyclate 100 mg/ 100 mls @ 100 mls/hr 10/01/16 22:00 10/03/16 09:32 Dextrose IVPB 100 mls/hr BID [facility] Administration Ceftriaxone Sodium 50 mls @ 100 mls/hr 10/01/16 16:45 10/03/16 09:32 Rocephin 1gm Ivpb (Pre-Docked) IVPB 100 mls/hr DAILY [facility] Administration Nystatin 500,000 units 10/01/16 12:15 10/03/16 06:27 Nystatin Oral Suspension - PO 500,000 units Q6HPO [facility] Administration Tamsulosin HCl 0.4 mg 10/01/16 08:30 10/03/16 09:32 Flomax - PO 0.4 mg DAILY@0830 [facility] Administration Microbiology 09/30/16 20:20 Blood - Peripheral Venous Blood Culture - Preliminary NO GROWTH OBTAINED AFTER 48 HOURS, INCUBATION TO CONTINUE FOR 3 DAYS. 09/30/16 20:20 Blood - Peripheral Venous Blood Culture - Preliminary NO GROWTH OBTAINED AFTER 48 HOURS, INCUBATION TO CONTINUE FOR 3 DAYS. 09/30/16 22:38 Urine - Urine - Catheterized Urine Culture - Final NO GROWTH OBTAINED 10/01/16 13:38 Blood - Peripheral Venous Blood Parasites Smear ([place]) - Final ASSESSMENT/PLAN: A: 81 yo man with PMH BPH prostate CA, PVD and HLD who was found on floor by neighbor at home s/p fall x2. Found to have FUO and rhabdo. P: 1. FUO - SIRS resolved - CXR without active pulmonary disease - MRI- no spinal abscess, degenerative changes in L4-L5 with stenosis present. Also with C3-C5 central canal stenosis. - blood and urine cx NGTD - peripheral smear negative for parasites - Lyme negative - Babesia/erlichia pending - will resend Lyme/Babesia/erlichia - Doxy 100 bid - rocephin 1g daily - appreciate ID 2. Rhabdomyolysis - CPK downtrending 1874->1259->822 - continue NS@150 - trend CK 3. DAVID - resolved - continue NS@150 4. HLD - continue to hold statin 5. BPH - Flomax 0.4mg daily 6. Thrombocytopenia - no active bleeding - hold ASA - trend CBC 7. Leukocytosis - resolved - monitor WBC 8. Elevated troponins - downtrending 0.22->0.06 - likely from DAVID/rhabdo - repeat daily 9. F/E/N - NS@150 - regular diet - replete prn 10. PPX - hold chemical AC 2/2 thrombocytopenia - PT Dispo- requires continued treatment of acute medical conditions Visit type - Emergency Visit Emergency Visit: Yes ED Registration Date: 10/01/16 Care time: The patient presented to the Emergency Department on the above date and was hospitalized for further evaluation of their emergent condition. - New Patient This patient is new to me today: Yes Date on this admission: 10/03/16 - Critical Care Critical Care patient: No
--- NOTE | 2016-10-03 18:04 | PN ---
Progress Note, Physician History of Present Illness: patient looking much better feels much better now sitting in chair - Current Medication List Current Medications: Active Medications Acetaminophen (Tylenol -) 650 mg PO Q4H PRN PRN Reason: FEVER Last Admin: 10/01/16 06:02 Dose: 650 mg Heparin Sodium (Porcine) (Heparin -) 5,000 unit SQ BID [facility] Last Admin: 10/03/16 09:36 Dose: 5,000 unit Sodium Chloride (Normal Saline -) 1,000 mls @ 150 mls/hr IV ASDIR [facility] Last Admin: 10/03/16 17:11 Dose: 150 mls/hr Doxycycline Hyclate 100 mg/ (Dextrose) 100 mls @ 100 mls/hr IVPB BID [facility] Last Admin: 10/03/16 09:32 Dose: 100 mls/hr Ceftriaxone Sodium (Rocephin 1gm Ivpb (Pre-Docked)) 50 mls @ 100 mls/hr IVPB DAILY [facility] Last Admin: 10/03/16 09:32 Dose: 100 mls/hr Nystatin (Nystatin Oral Suspension -) 500,000 units PO Q6HPO [facility] Last Admin: 10/03/16 17:12 Dose: 500,000 units Tamsulosin HCl (Flomax -) 0.4 mg PO DAILY@0830 [facility] Last Admin: 10/03/16 09:32 Dose: 0.4 mg - Objective Vital Signs: Vital Signs Temperature 97.4 F L 10/03/16 14:32 Pulse Rate 64 10/03/16 14:32 Respiratory Rate 17 10/03/16 14:32 Blood Pressure 157/65 10/03/16 14:32 O2 Sat by Pulse Oximetry (%) 98 10/03/16 10:00 Constitutional: Yes: No Distress, Calm Cardiovascular: Yes: Regular Rate and Rhythm Respiratory: Yes: Regular, CTA Bilaterally Gastrointestinal: Yes: Normal Bowel Sounds, Soft Musculoskeletal: Yes: WNL Extremities: Yes: WNL Wound/Incision: Yes: Clean/Dry Neurological: Yes: Alert, Oriented Labs: CBC, BMP 10/03/16 06:28 10/03/16 06:28 INR, PTT INR 1.15 (0.82-1.09) H 09/30/16 20:28 Assessment/Plan ist set of report negative on parasite,looks more likely his fever could be due to rhabdo 81yM with PMH HLD, BPH, Prostate CA, PVD who presented to ED after being FOF, generalized malaise x 3 days. He is being admitted for further evaluation and treatment. Rhabdomyolysis, SIR HLD BPH fever lower ext weakness plan will stop ceftriaxone continue doxy hydration monitoring
[2016-10-04] MEDS: SODIUM CHLORIDE 1,000 ML IV SCH ×3 (02:53→13:34)
[2016-10-04] MEDS: NYSTATIN 500,000 UNITS/5 ML SUSPENSION PO SCH ×3 (06:17→18:08)
[2016-10-04 07:15] LABS: BASOPHIL 0.4 % (0-2.0); EOSINOPHIL 1.7 % (0-4.5); MCH 31.4 pg (25.7-33.7); MEAN CELL VOLUME 92.3 fl (80-96); NEUTROPHILS 65.6 % (42.8-82.8); PLATELET COUNT 91 K/MM3 (134-434); WHITE BLOOD COUNT 4.8 K/mm3 (4.0-10.0)
[2016-10-04 07:28] LABS: ALBUMIN 2.4 g/dl (3.4-5.0); ANION GAP 10 (8-16); CALCIUM 7.7 mg/dL (8.5-10.1); CO2 22 mmol/L (21-32); GLUCOSE,RANDOM 92 mg/dL (74-106); SGOT/AST 127 U/L (15-37)
[2016-10-04 07:35] LABS: ALK PHOS 47 U/L (45-117); BILIRUBIN,TOTAL 0.6 mg/dL (0.2-1.0); SGPT/ALT 175 U/L (12-78); TOT PROT 5.7 g/dl (6.4-8.2); TROPONIN I 0.03 ng/ml (0.00-0.05)
[2016-10-04] MEDS: TAMSULOSIN HCL 0.4 MG CAP.ER.24H (FP) PO SCH (08:41)
[2016-10-04] MEDS ORDERED: PT OWN MED DRAWER 7, Y5N ONE (09:39)
--- NOTE | 2016-10-04 09:44 | PN ---
Physical Exam: SUBJECTIVE: Patient seen and examined Pt denies cp, sob,palpitations, dizziness, ROSARIO, abdominal pain,N/V/D or urinary symptoms. OBJECTIVE: Vital Signs Period Temp Pulse Resp BP Sys/Paris Pulse Ox Last 24 Hr 97.4 F-98.6 F 60-68 17-20 123-157/64-82 98-98 GENERAL: The patient is awake, alert, and fully oriented, in no acute distress. HEAD: Normal with no signs of trauma. EYES: PERRL, extraocular movements intact, sclera anicteric, conjunctiva clear. No ptosis. ENT: Ears normal, nares patent, oropharynx clear without exudates, moist mucous membranes. NECK: Trachea midline, full range of motion, supple. LUNGS: Breath sounds equal, clear to auscultation bilaterally, no wheezes, no crackles, no accessory muscle use. HEART: Regular rate and rhythm, S1, S2 without murmur, rub or gallop. ABDOMEN: Soft, nontender, nondistended, normoactive bowel sounds, no guarding, no rebound, no hepatosplenomegaly, no masses. EXTREMITIES: 2+ pulses, warm, well-perfused, no edema. NEUROLOGICAL: Cranial nerves II through XII grossly intact. Normal speech, gait not observed. PSYCH: Normal mood, normal affect. SKIN: Warm, dry, normal turgor, no rashes or lesions noted, small abrasion - RLE and forehead. Laboratory Results - last 24 hr 10/01/16 10/04/16 10/04/16 07:50 06:00 06:00 WBC 4.8 RBC 3.94 L Hgb 12.4 Hct 36.4 MCV 92.3 MCH 31.4 MCHC 34.0 RDW 14.0 Plt Count 91 L MPV 10.0 Neutrophils % 65.6 Lymphocytes % 23.1 Monocytes % 9.2 Eosinophils % 1.7 Basophils % 0.4 Sodium 141 Potassium 3.5 Chloride 109 H Carbon Dioxide 22 Anion Gap 10 BUN 23 H D Creatinine 1.0 Creat Clearance w eGFR > 60 Random Glucose 92 Calcium 7.7 L Total Bilirubin 0.6 AST 127 H D ALT 175 H Alkaline Phosphatase 47 Creatine Kinase 473 H D Creatine Kinase Index 0.6 CK-MB (CK-2) 2.968 CK-MB (CK-2) Rel Index Troponin I 0.03 D Total Protein 5.7 L Albumin 2.4 L Lyme Screen IgG & IgM <0.91 10/04/16 06:00 WBC RBC Hgb Hct MCV MCH MCHC RDW Plt Count MPV Neutrophils % Lymphocytes % Monocytes % Eosinophils % Basophils % Sodium Potassium Chloride Carbon Dioxide Anion Gap BUN Creatinine Creat Clearance w eGFR Random Glucose Calcium Total Bilirubin AST ALT Alkaline Phosphatase Creatine Kinase Creatine Kinase Index CK-MB (CK-2) CK-MB (CK-2) Rel Index Cancelled Troponin I Total Protein Albumin Lyme Screen IgG & IgM Active Medications Generic Name Dose Route Start Last Admin Trade Name Freq PRN Reason Stop Dose Admin Acetaminophen 650 mg 10/01/16 00:43 10/01/16 06:02 Tylenol - PO 650 mg Q4H PRN Administration FEVER Heparin Sodium (Porcine) 5,000 unit 10/01/16 10:00 10/03/16 21:40 Heparin - SQ 5,000 unit BID [facility] Administration Sodium Chloride 1,000 mls @ 150 mls/hr 10/01/16 02:04 10/04/16 02:53 Normal Saline - IV 150 mls/hr ASDIR [facility] Administration Doxycycline Hyclate 100 mg/ 100 mls @ 100 mls/hr 10/01/16 22:00 10/03/16 21:40 Dextrose IVPB 100 mls/hr BID [facility] Administration Nystatin 500,000 units 10/01/16 12:15 10/04/16 06:17 Nystatin Oral Suspension - PO 500,000 units Q6HPO [facility] Administration Tamsulosin HCl 0.4 mg 10/01/16 08:30 10/04/16 08:41 Flomax - PO 0.4 mg DAILY@0830 [facility] Administration ASSESSMENT/PLAN: This is an 81 yo man with PMH BPH prostate CA, PVD and HLD who was found on floor by neighbor at home s/p fall x2. Found to have FUO and rhabdo. PMD * FUO - SIRS resolved - CXR without active pulmonary disease - MRI- no spinal abscess, degenerative changes in L4-L5 with stenosis present. Also with C3-C5 central canal stenosis. - blood and urine cx - no growth - peripheral smear negative for parasites - Lyme negative - Babesia/erlichia pending - will resend Lyme/Babesia/erlichia - ID following - will cont on Doxy 100 bid, Rocephin stopped by ID - afebrile with no leukocytosis *Rhabdomyolysis - CPK downtrending 1874->1259->822>473 - will hold off IVF and will increase oral intake - will cont to trend CK * DAVID- resolved - s/p IV hydration * HLD - continue to hold statin *BPH - Flomax 0.4mg daily *Thrombocytopenia- improving - no active bleeding - hold ASA - will trend CBC *Elevated troponins- likely from DAVID/rhabdo - downtrending 0.22->0.06> 0.03 * F/E/N - regular diet - replete prn *PPX - hold chemical AC 2/2 thrombocytopenia, will use SCD - PT Dispo- requires continued treatment of acute medical conditions Visit type - Emergency Visit Emergency Visit: Yes ED Registration Date: 10/01/16 Care time: The patient presented to the Emergency Department on the above date and was hospitalized for further evaluation of their emergent condition. - New Patient This patient is new to me today: Yes Date on this admission: 10/04/16 - Critical Care Critical Care patient: No
[2016-10-04] MEDS: HEPARIN NA (PORCINE) 5,000 UNITS/ML 1ML VIAL SQ SCH ×2 (09:47→22:39)
[2016-10-04] MEDS: DOXYCYCLINE INJECTION 100 MG in DEXTROSE 5%-WATER - 100 ML IVPB SCH (09:47)
--- NOTE | 2016-10-04 15:03 | PN ---
Progress Note, Physician History of Present Illness: patient doing well no new issues - Current Medication List Current Medications: Active Medications Acetaminophen (Tylenol -) 650 mg PO Q4H PRN PRN Reason: FEVER Last Admin: 10/01/16 06:02 Dose: 650 mg Heparin Sodium (Porcine) (Heparin -) 5,000 unit SQ BID [facility] Last Admin: 10/04/16 09:47 Dose: 5,000 unit Sodium Chloride (Normal Saline -) 1,000 mls @ 75 mls/hr IV ASDIR [facility] Last Admin: 10/04/16 13:34 Dose: 75 mls/hr Nystatin (Nystatin Oral Suspension -) 500,000 units PO Q6HPO [facility] Last Admin: 10/04/16 11:39 Dose: 500,000 units Tamsulosin HCl (Flomax -) 0.4 mg PO DAILY@0830 [facility] Last Admin: 10/04/16 08:41 Dose: 0.4 mg - Objective Vital Signs: Vital Signs Temperature 97.9 F 10/04/16 14:38 Pulse Rate 71 10/04/16 14:38 Respiratory Rate 20 10/04/16 14:38 Blood Pressure 156/76 10/04/16 14:38 O2 Sat by Pulse Oximetry (%) 97 10/04/16 10:00 Constitutional: Yes: No Distress, Calm Cardiovascular: Yes: Regular Rate and Rhythm Respiratory: Yes: Regular, CTA Bilaterally Gastrointestinal: Yes: Normal Bowel Sounds, Soft Musculoskeletal: Yes: WNL Extremities: Yes: Other Wound/Incision: Yes: Clean/Dry Neurological: Yes: Alert, Oriented Psychiatric: Yes: Alert, Oriented Labs: CBC, BMP 10/04/16 06:00 10/04/16 06:00 INR, PTT INR 1.15 (0.82-1.09) H 09/30/16 20:28 Assessment/Plan ist set of report negative on parasite,looks more likely his fever could be due to rhabdo 81yM with PMH HLD, BPH, Prostate CA, PVD who presented to ED after being FOF, generalized malaise x 3 days. He is being admitted for further evaluation and treatment. Rhabdomyolysis, SIR HLD BPH fever lower ext weakness plan changed doxy to oral physio continue to monitor rhabdo rest as per primacy
[2016-10-04] MEDS: DOXYCYCLINE HYCLATE 100 MG CAPSULE PO SCH (18:08)
[2016-10-05] MEDS: NYSTATIN 500,000 UNITS/5 ML SUSPENSION PO SCH ×3 (00:39→11:07)
[2016-10-05] MEDS: SODIUM CHLORIDE 1,000 ML IV SCH (00:42)
[2016-10-05] MEDS: TAMSULOSIN HCL 0.4 MG CAP.ER.24H (FP) PO SCH (08:30)
[2016-10-05] MEDS ORDERED: PT OWN MED DRAWER 7, Y5N ONE (09:28)
[2016-10-05] MEDS: DOXYCYCLINE HYCLATE 100 MG CAPSULE PO SCH (09:47)
[2016-10-05] MEDS: HEPARIN NA (PORCINE) 5,000 UNITS/ML 1ML VIAL SQ SCH (09:47)
--- NOTE | 2016-10-05 12:48 | DS ---
Physical Exam: SUBJECTIVE: Patient seen and examined at bedside. OBJECTIVE: Vital Signs 3 Period Temp Pulse Resp BP Sys/[place] Pulse Ox Last 24 Hr 97.4 F-98.7 F 54-71 20-20 136-157/59-76 97-97 PHYSICAL EXAM GENERAL: The patient is awake, alert, and fully oriented, in no acute distress. HEAD: Resolving ecchymoses x3 to forehead. EYES: PERRL, extraocular movements intact, sclera anicteric, conjunctiva clear. No ptosis. LUNGS: Breath sounds equal, clear to auscultation bilaterally, no wheezes or accessory muscle use. HEART: Regular rate and rhythm, S1, S2 without murmur. ABDOMEN: Soft, nontender, mildly distended, normoactive bowel sounds, no guarding present. EXTREMITIES: 2+ pulses, warm, well-perfused, no edema. NEUROLOGICAL: Cranial nerves II through XII grossly intact. Normal speech, gait not observed. PSYCH: Normal mood, normal affect. SKIN: Warm, dry, normal turgor, no rashes or lesions noted. Resolving ecchymoses x3 to forehead. LABS HOSPITAL COURSE: Date of Admission:10/01/16 Date of Discharge: 10/05/16 Minutes to complete discharge: 30 Discharge Summary Reason For Visit: ELEVATED TROPONIN SEPSIS RENAL FAILURE Current Active Problems Acute renal failure (Acute) Elevated troponin (Acute) Rhabdomyolysis (Acute) Sepsis (Acute) Hospital Course: This is an 81 year old male with a past medical history of Hyperlipidemia, BPH, Prostate CA, PVD presented to the ED from home via ambulance. Neighbors noted they had not seen pt at all today and he had mentioned he was not feeling well yesterday so they went inside to check on him and found him on the floor. Pt reported he had fallen twice on 09/30; once in the morning out of bed around 5am and eventually he was able to get up and go back to bed. He then later fell while getting something to drink and was unable to get up and that is where his neighbors found him. He reported he has been feeling unwell since . He denied pain, SOB, chest pain, cough, dysuria, frequency. 1. FUO - SIRS resolved - Afebrile since 10/01 @ 1219 - CXR without active pulmonary disease - MRI- no spinal abscess, degenerative changes in L4-L5 with stenosis present. Also with C3-C5 central canal stenosis. - blood and urine cx NGTD - peripheral smear negative for parasites x2 - Lyme negative - Babesia/erlichia pending - Doxy 100 bid switched to PO 10/04 to be continued through 10/16 for a total of 14 days - rocephin 1g daily stopped 10/03 2. Rhabdomyolysis - resolved after IVF 3. DAVID - resolved s/p IVF 4. HLD - stop Lipitor 2/2 transaminitis 5. BPH - Flomax 0.4mg daily 6. Thrombocytopenia - no active bleeding - uptrending 7. Leukocytosis - resolved - likely reactive 2/2 rhabdo 8. Elevated troponins - resolved - likely from DAVID/rhabdo Dispo- Discharge to home with walker and doxy. Condition: Improved - Instructions Diet, Activity, Other Instructions: Eat a well balanced diet. Keep hydrated with 6-8 glasses of water every day- even if you are not thirsty. Lab tests for babesia are still pending. If further treatment is needed, you will receive a call from my office. Take doxycycline 2 times every day until you finish all pills. Stop taking your atorvastatin (Lipitor) until you see your primary doctor. Call your doctor for an appointment within 2 weeks. Return to the ER for any complaints. Disposition: HOME - Home Medications Comprehensive Discharge Medication List: Ambulatory Orders Atorvastatin Ca [Lipitor -] 20 mg PO DAILY 12/23/14 Tamsulosin HCl [Flomax] 0.4 mg PO DAILY 12/23/14 This patient is new to me today: No Emergency Visit: Yes ED Registration Date: 10/01/16 Care time: The patient presented to the Emergency Department on the above date and was hospitalized for further evaluation of their emergent condition. Critical Care patient: No - Discharge Referral Referred to [facility] Med P.C.: No
[2016-10-05 14:18] LABS: BABESIA MICROTI ANTIBODY IGG <1:10 (Neg:<1:10)
[2016-10-05 15:22] VITALS: BP 160/60; PULSE 60; TEMP 97.9
--- NOTE | 2016-10-05 15:51 | PN ---
Progress Note, Physician History of Present Illness: patient doing well no new issues doing well no complaints - Current Medication List Current Medications: Active Medications Acetaminophen (Tylenol -) 650 mg PO Q4H PRN PRN Reason: FEVER Last Admin: 10/01/16 06:02 Dose: 650 mg Doxycycline Hyclate (Vibramycin -) 100 mg PO BID@1000,1800 [facility] Last Admin: 10/05/16 09:47 Dose: 100 mg Heparin Sodium (Porcine) (Heparin -) 5,000 unit SQ BID [facility] Last Admin: 10/05/16 09:47 Dose: 5,000 unit Sodium Chloride (Normal Saline -) 1,000 mls @ 75 mls/hr IV ASDIR [facility] Last Admin: 10/05/16 00:42 Dose: 75 mls/hr Nystatin (Nystatin Oral Suspension -) 500,000 units PO Q6HPO [facility] Last Admin: 10/05/16 11:07 Dose: 500,000 units Tamsulosin HCl (Flomax -) 0.4 mg PO DAILY@0830 [facility] Last Admin: 10/05/16 08:30 Dose: 0.4 mg - Objective Vital Signs: Vital Signs Temperature 97.9 F 10/05/16 15:19 Pulse Rate 60 10/05/16 15:19 Respiratory Rate 20 10/05/16 15:19 Blood Pressure 160/60 10/05/16 15:19 O2 Sat by Pulse Oximetry (%) 97 10/05/16 09:20 Constitutional: Yes: No Distress, Calm Cardiovascular: Yes: Regular Rate and Rhythm Respiratory: Yes: Regular, CTA Bilaterally Gastrointestinal: Yes: Normal Bowel Sounds, Soft Musculoskeletal: Yes: WNL Extremities: Yes: WNL Wound/Incision: Yes: Clean/Dry Neurological: Yes: Alert, Oriented Psychiatric: Yes: Alert, Oriented Labs: CBC, BMP 10/04/16 06:00 10/04/16 06:00 INR, PTT INR 1.15 (0.82-1.09) H 09/30/16 20:28 Assessment/Plan ist set of report negative on parasite,looks more likely his fever could be due to rhabdo 81yM with PMH HLD, BPH, Prostate CA, PVD who presented to ED after being FOF, generalized malaise x 3 days. He is being admitted for further evaluation and treatment. Rhabdomyolysis, SIR HLD BPH fever lower ext weakness plan changed doxy to oral physio complete a total dose for 14 days of doxy
== END 2016-10-05 16:57 | disposition home or self-care (01) | DRG 558 ==
LOC: JER 18:57 → JERBED 10-01 00:33 → J4W 10-01 18:55 → J5S 10-02 18:24
PROVIDERS: ADMIT Internal Medicine; ATTEND Nurse Practitioner Family
DX: M62.82 Rhabdomyolysis (principal); N17.9 Acute kidney failure, unspecified; R65.10 Systemic inflammatory response syndrome (SIRS) of non-infectious origin without acute organ dysfunction; E87.1 Hypo-osmolality and hyponatremia; E78.5 Hyperlipidemia, unspecified; N40.0 Benign prostatic hyperplasia without lower urinary tract symptoms; I73.9 Peripheral vascular disease, unspecified; S00.83XA Contusion of other part of head, initial encounter; S50.312A Abrasion of left elbow, initial encounter; S80.212A Abrasion, left knee, initial encounter; S80.812A Abrasion, left lower leg, initial encounter; W18.30XA Fall on same level, unspecified, initial encounter; Z91.81 History of falling; Y92.013 Bedroom of single-family (private) house as the place of occurrence of the external cause; R26.81 Unsteadiness on feet; D69.6 Thrombocytopenia, unspecified; R50.9 Fever, unspecified; M51.36 Other intervertebral disc degeneration, lumbar region; R74.8 Abnormal levels of other serum enzymes
CPT/HCPCS: 36415; 70450-TC; 71010-TC; 72146-TC; 72148-TC; 72170-TC; 80048; 80053; 81003; 81015; 82550; 82553; 83605; 83735; 84100; 84484; 85025; 85610; 85730; 86618; 86666; 86753; 87040; 87086; 87207; 93005; 93010; 93306-TC; 94010; 97116-GP; 97162-GP; 99285-25; J1644

== ENCOUNTER 2017-06-17 02:55 | Day surgery (SDC) | payer OTHER ==
[2017-06-17 03:03] VITALS: BMI 28.8
--- NOTE | 2017-06-17 03:04 | PDOC ---
History of Present Illness - General Chief Complaint: Urinary Problem Stated Complaint: UNABLE TO URINATE Time Seen by Provider: 06/17/17 03:04 - History of Present Illness Initial Comments: 82 year old male with history of prostate CA (diagnosed 18 months ago s/p 4 months of chemo and recent three weeks of radiation, last dose 06/15), PVD, and HLD presenting with inability to urinate over the the past three hours. He hasn' t had this issue in the past and has never needed a Mayen catheter in the past. His urologist is Dr. Gallegos and his oncologist is Dr. Tamir Marquis. Denies recent EtoH ingestion or other drug use. 06/17/17 04:32 Past History - Past Medical History Allergies/Adverse Reactions: Allergies Allergy/AdvReac Type Severity Reaction Status Date / Time No Known Allergies Allergy Verified 09/30/16 19:22 Home Medications: Ambulatory Orders Tamsulosin HCl [Flomax -] 0.4 mg PO DAILY 12/23/14 Ascorbate Calcium [Vitamin C] 500 mg PO DAILY 06/17/17 Atorvastatin Ca [Lipitor] 20 mg PO HS 06/17/17 Multivitamin/Iron/Folic Acid [Centrum Adults Tablet] 1 each PO DAILY 06/17/17 [place]-3 Fatty Acids/Fish Oil [Fish Oil 1,000 mg Capsule] 1 each PO DAILY Cancer: Yes (prostate cancer, currently receiveing radiation) COPD: No Disorders: Yes (BPH) Hypercholesterolemia: Yes - Surgical History Neurologic Surgery: Yes (SPINAL CYST REMOVAL) - Immunization History Immunization Up to Date: Yes - Suicide/Smoking/Psychosocial Hx Smoking Status: No Smoking History: Never smoked Have you smoked in the past 12 months: No Number of Cigarettes Smoked Daily: 0 If you are a former smoker, when did you quit?: years ago Cigars Per Day: 1 Information on smoking cessation initiated: No Hx Alcohol Use: No Drug/Substance Use Hx: No Substance Use Type: None Hx Substance Use Treatment: No Review of Systems - Review of Systems Constitutional: No: Chills, Diaphoresis, Fever HEENTM: No: Blurred Vision, Tearing Respiratory: No: Cough, Shortness of Breath, Wheezing Cardiac (ROS): No: Chest Pain, Irregular Heart Rate, Chest Tightness ABD/GI: Yes: Abdominal Distended. No: Constipated, Diarrhea, Nausea, Vomiting : Yes: Pain, Urgency. No: Burning, Dysuria, Hematuria Musculoskeletal: No: Back Pain, Joint Pain Integumentary: No: Bruising, Flushing, Lesions Neurological: No: Headache, Numbness *Physical Exam - Vital Signs Last Vital Signs Temp Pulse Resp BP Pulse Ox 97.6 F 79 18 178/82 100 06/17/17 03:00 06/17/17 03:00 06/17/17 03:00 06/17/17 03:00 06/17/17 03:00 - Physical Exam General Appearance: Yes: Nourished, Appropriately Dressed, Apparent Distress, Mild Distress HEENT: positive: EOMI, ESTEE, Normal ENT Inspection, Normal Voice Neck: positive: Trachea midline, Normal Thyroid, Supple. negative: Tender, Rigid Respiratory/Chest: positive: Lungs Clear, Normal Breath Sounds. negative: Chest Tender, Respiratory Distress, Accessory Muscle Use Cardiovascular: positive: Regular Rhythm, Regular Rate Gastrointestinal/Abdominal: positive: Normal Bowel Sounds, Flat, Soft, Distended (Suprapubic tenderness to palaption and distension). negative: Tender Male Genitalia: positive: normal genitalia (uncircumcised male) Musculoskeletal: positive: Normal Inspection. negative: CVA Tenderness Extremity: positive: Normal Capillary Refill, Normal Inspection, Normal Range of Motion. negative: Tender Integumentary: positive: Normal Color, Dry, Warm Neurologic: positive: Fully Oriented, Alert, Normal Mood/Affect, Normal Response ED Treatment Course - LABORATORY CBC & Chemistry Diagram: 06/17/17 04:48 06/17/17 04:48 Medical Decision Making - Medical Decision Making 82 year old male with prostate carcinoma and acute urinary retention. US demonstrated 350 ml in the bladder. Unsuccessful Mayen placement despite multiple attempt with regular Mayen and two C[place] catheters under ultrasound with irrigation. Only bloody fluid and come clots passing into the catheters. Likely that prostatic hyperplasia and/ or clots are preventing passage of the Mayen into the bladder. Consulted Dr. Carpenter who will come see the patient. 06/17/17 04:[address] Carpenter and they will take him to the OR around 6:30 AM. Preop labs and EKG done. Last meal was 17:30 yesterday and had some water around midnight. Patient admitted to OR with 20 G IV in right AC. 06/17/17 05:53 *DC/Admit/Observation/Transfer Diagnosis at time of Disposition: Urinary retention - Discharge Dispostion Condition at time of disposition: Improved Admit: Yes - Referrals - Patient Instructions - Post Discharge Activity
--- NOTE | 2017-06-17 04:28 | PDOC ---
Attending Attestation - HPI HPI: 06/17/17 04:30 Patient is an 82 year old male with a significant past medical history of Hyperlipidemia, "slow heart beat", BPH, Prostate CA (Last chemo, Saturday), PVD, who presents to the ED with complaints of urinary retention that began 3 hours prior to ED arrival. Patient reports attempting to urinate earlier tonight when i noticed he was unable to pass any urine, prompting him to come into the ED for further evaluation. Denies chest pain, Sob. Denies nausea, vomiting. Denies change in appetite. Denies diarrhea, constipation, dysuria, hematuria. Denies any other symptoms. Allergies: None Social history: No smoking, No alcohol. No illicit drugs. Surgical history: Left fem-pop bypass, spinal cystectomy 40 years ago PMD: Dr. Rita Tracy Urology: Jessica ([facility]), Oncology:Tamir Vargas [phone] - Physicial Exam PE: 06/17/17 04:30 GENERAL: Awake, alert, and fully oriented, in no acute distress HEAD: No signs of trauma EYES: PERRLA, EOMI, sclera anicteric, conjunctiva clear ENT: Auricles normal inspection, nares patent, Moist mucosa NECK: Normal ROM, supple, no lymphadenopathy, JVD, or masses LUNGS: Breath sounds equal, clear to auscultation bilaterally. No wheezes, and no crackles HEART: Regular rate and rhythm, normal S1 and S2, no murmurs, rubs or gallops ABDOMEN: +Superpubic tenderness. +Bladder fullness. Soft, nontender, normoactive bowel sounds. No guarding, no rebound. No masses EXTREMITIES: Normal range of motion, no edema. No clubbing or cyanosis. No cords, erythema, or tenderness NEUROLOGICAL: Normal speech SKIN: Warm, Dry, normal turgor, no rashes or lesions noted. <Blaine Jean-Baptiste - Last Filed: 06/17/17 04:30> - Resident Resident Name: Sabrina Marie - ED Attending Attestation I have performed the following: I have examined & evaluated the patient, The case was reviewed & discussed with the resident, I agree w/resident's findings & plan, Exceptions are as noted <Marian Perla - Last Filed: 06/17/17 05:27> Heart Score/ECG Review #1 General ECG Interpretation: Sinus Rhythm, Normal Rate (58), Normal Intervals, No acute ischemic changes <Marian Perla - Last Filed: 06/17/17 05:27>
[2017-06-17] MEDS ORDERED: morphine CARPU-JECT 4 MG/1 ML DISP.SYRIN IVPUSH ONE (04:30)
[2017-06-17] MEDS ORDERED: morphine SULFATE 4 MG/ML VIAL ONE (04:56)
[2017-06-17 05:02] LABS: BASO % 0.2 % (0-2.0); EOS % 0.4 % (0-4.5); HEMATOCRIT 43.9 % (35.4-49); HEMOGLOBIN 15.3 GM/dL (11.7-16.9); LYMPH % 13.1 % (8-40); MCH 32.7 pg (25.7-33.7); MCHC 34.8 g/dl (32.0-35.9); MEAN PLT VOLUME 9.6 fl (7.5-11.1); MONO % 6.3 % (3.8-10.2); PLATELET COUNT 150 K/MM3 (134-434); RBC 4.67 M/mm3 (4.00-5.60); WHITE BLOOD COUNT 9.4 K/mm3 (4.0-10.0)
[2017-06-17 06:16] LABS: INR 1.06 (0.82-1.09)
[2017-06-17] MEDS ORDERED: SUCCINYLCHOLINE CHLORIDE 200 MG/10 ML VIAL ONE (06:50)
[2017-06-17] MEDS ORDERED: PROPOFOL 20 ML ONE ×3 (06:50→09:57)
[2017-06-17] MEDS ORDERED: MIDAZOLAM HCL 2 MG/2 ML SINGLE DOSE VIAL ONE ×2 (06:50→09:50)
--- NOTE | 2017-06-17 06:52 | CON.GU ---
Consult Consult Specialty:: Reason for Consultation:: urinary retention - History of Present Illness Chief Complaint: unable to urinate History of Present Illness: 82 yo m w hx ca prostate s/p xrt pres to ED c/o inablity to urinate and s/p pain , ER MD unable to insert blandon and cons req. - History Source History Provided By: Patient, Medical Record Limitations to Obtaining History: No Limitations - Alcohol/Substance Use Hx Alcohol Use: No - Smoking History Smoking history: Never smoked Have you smoked in the past 12 months: No Aproximately how many cigarettes per day: 0 If you are a former smoker, when did you quit?: years ago Home Medications - Allergies Allergies/Adverse Reactions: Allergies Allergy/AdvReac Type Severity Reaction Status Date / Time No Known Allergies Allergy Verified 09/30/16 19:22 - Home Medications Home Medications: Ambulatory Orders Tamsulosin HCl [Flomax -] 0.4 mg PO DAILY 12/23/14 Ascorbate Calcium [Vitamin C] 500 mg PO DAILY 06/17/17 Atorvastatin Ca [Lipitor] 20 mg PO HS 06/17/17 Multivitamin/Iron/Folic Acid [Centrum Adults Tablet] 1 each PO DAILY 06/17/17 [place]-3 Fatty Acids/Fish Oil [Fish Oil 1,000 mg Capsule] 1 each PO DAILY Review of Systems - Review of Systems Genitourinary: reports: Pain Physical Exam- Vital Signs: Vital Signs Temperature 98.5 F 06/17/17 06:34 Pulse Rate 68 06/17/17 06:34 Respiratory Rate 20 06/17/17 06:34 Blood Pressure 156/78 06/17/17 06:34 O2 Sat by Pulse Oximetry (%) 100 06/17/17 03:00 Gastrointestinal: Yes: Distention (SP). No: Tenderness, Rebound Prostate Exam: Yes: Swollen Labs: CBC, BMP 06/17/17 04:48 Problem List - Problems (1) Prostate cancer Code(s): C61 - MALIGNANT NEOPLASM OF PROSTATE (2) Urinary retention Assessment/Plan: cysto and blandon insertion over wire Code(s): R33.9 - RETENTION OF URINE, UNSPECIFIED
[2017-06-17] MEDS ORDERED: ceFAZolin SODIUM 1 GM VIAL ONE (06:58)
[2017-06-17] MEDS ORDERED: SODIUM CHLORIDE 0.9% P/F 10 ML VIAL IJ ONE (06:58)
[2017-06-17] MEDS ORDERED: ceFAZolin SODIUM 1 GM VIAL IVPB ONE (07:00)
[2017-06-17] MEDS ORDERED: LIDOCAINE HCL 2% JELLY 10 ML CARTRIDGE ONE (07:02)
[2017-06-17] MEDS ORDERED: LIDOCAINE HCL 1%, 10 MG/ML (20ML VIAL) ONE (07:08)
[2017-06-17] MEDS ORDERED: LIDOCAINE HCL 1%, 10 MG/ML (50 mL VIAL) IJ ONE ×2 (07:13)
--- NOTE | 2017-06-17 07:23 | OP ---
Operative Note - Note: Operative Date: 06/17/17 Pre-Operative Diagnosis: urinary retetntion, prostate ca, urethral false passage Operation: cystoscopy, s/p aspiration Post-Operative Diagnosis: Same as Pre-op Surgeon: Alcon Schrader Anesthesiologist/SOCIAL SERVICE COORDINATOR: Jae Hamilton Anesthesia: Local, Fractional Estimated Blood Loss (mls): 0 Operative Report Dictated: Yes
[2017-06-17] MEDS ORDERED: ONDANSETRON 4 MG/2 ML VIAL IVPUSH PRN ×2 (07:58→10:49)
[2017-06-17] MEDS ORDERED: LACTATED RINGERS SOLUTION 1,000 ML IV SCH (08:00)
[2017-06-17] MEDS ORDERED: METOPROLOL TARTRATE 5 MG/5 ML VIAL IVPUSH ONE (09:00)
[2017-06-17] MEDS ORDERED: ENALAPRILAT DIHYDRATE 2.5 MG/2 ML VIAL IVPB ONE ×2 (09:16→09:18)
[2017-06-17 09:25] LABS: ALBUMIN 4.2 g/dl (3.4-5.0); ALK PHOS 70 U/L (45-117); ANION GAP 9 (8-16); BILIRUBIN,TOTAL 0.8 mg/dL (0.2-1.0); BLOOD UREA NITROGEN 38 mg/dL (7-18); CALCIUM 9.3 mg/dL (8.5-10.1); CHLORIDE 109 mmol/L (98-107); CO2 22 mmol/L (21-32); CREATININE 1.6 mg/dL (0.7-1.3); GLUCOSE,RANDOM 110 mg/dL (74-106); POTASSIUM 4.2 mmol/L (3.5-5.1); SGOT/AST 31 U/L (15-37); SGPT/ALT 42 U/L (12-78); SODIUM 140 mmol/L (136-145); TOT PROT 7.9 g/dl (6.4-8.2)
--- NOTE | 2017-06-17 10:34 | OP ---
Operative Note - Note: Operative Date: 06/17/17 Pre-Operative Diagnosis: acute urinary retention Operation: open suprapubic tube placement Findings: 600 + urine in bladder/blandon per penis not able to be placed Post-Operative Diagnosis: Same as Pre-op Surgeon: Rahat Alfaro Anesthesia: General Drains & Tubes with Location: suprapubic tube
--- NOTE | 2017-06-17 10:35 | OP ---
DATE OF OPERATION: 06/17/2017 PREOPERATIVE DIAGNOSES: 1. Urinary retention. 2. Urethral false passage. 3. Prostate cancer. POSTOPERATIVE DIAGNOSES: 1. Urinary retention. 2. Urethral false passage. 3. Prostate cancer. PROCEDURE: Cystoscopy and suprapubic aspiration. SURGEON: Alcon Tyson MD PET SUPPLIES SALESPERSON: None. ANESTHESIA: IV sedation plus local. ANESTHESIOLOGIST: SPECIMENS: None. CULTURES: None. DRAINS: None. ESTIMATED BLOOD LOSS: None. COMPLICATIONS: None. DESCRIPTION OF PROCEDURE: The patient was brought into the operating room and placed on the operating room table in the supine position. After administration of intravenous sedation, intravenous antibiotics were administered, and the lower abdomen and genitals were prepped and draped in the usual sterile manner. Flexible cystoscope was now introduced into the anterior urethra under direct vision. The anterior urethra was normal. The bulbar urethra was reached, and a urethral false passage was identified. No true lumen of the urethra could be identified despite multiple probing with a guidewire. The rigid cystoscope was now inserted, and attempts again were made to locate the true lumen of the urethra, and this was unsuccessful. Now, suprapubic aspiration was done. The bladder was not adequately distended for a trocar . The patient was awoken from anesthesia and transferred to the recovery room in stable condition. We will follow up later on today after the bladder gets distended for a suprapubic cystostomy. ALCON TYSON M.D. [id number]
--- NOTE | 2017-06-17 10:39 | CONSULT ---
Consult - text type - Consultation Consultation Note: cc: acute urinary retention hpi: patient is an 82 year old male with history of CAP who just finished RT and is in acute urinary retention. The patient had been taken to the OR at 6: 00 am and cystoscopy was unsuccessful and the bladder was not distended enough to place a suprapubic tube. Patient is in severe distress and in danger of bladder perforation PE 3+ irregular prostate bladder palpable to umbilicus imp acute urinary retention CAP urethral stricture plan patient is emergently taken to the OR due to severe distress with high risk of bladder perforation discussed with pt. and Dr Lester x 25 minutes risks and benefits reviewed
--- NOTE | 2017-06-17 11:27 | EKG ---
Test Reason : Blood Pressure : / mmHG Vent. Rate : 058 BPM Atrial Rate : 058 BPM P-R Int : 226 ms QRS Dur : 080 ms QT Int : 406 ms P-R-T Axes : 041 -12 025 degrees QTc Int : 398 ms SINUS BRADYCARDIA WITH MARKED SINUS ARRHYTHMIA WITH 1ST DEGREE A-V BLOCK PERIODS OF JUNCTIONAL COMPLEX WHEN COMPARED WITH ECG OF 30-SEP-2016 19:12, VENT. RATE HAS DECREASED POSSIBLE JUNCTIONAL COMPLEX CLINICAL CORRELATION IS RECOMMENDED Confirmed by SIMA SCHOFIELD MD ([id number]) on 06/17/2017 11:27:19 AM Referred By: Confirmed By:SIMA SCHOFIELD MD
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
[2017-06-17 12:53] VITALS: TEMP 98.6
[2017-06-17 17:21] VITALS: BP 145/54; PULSE 67
== END 2017-06-17 17:00 | disposition home or self-care (01) ==
LOC: JER 02:55 → UNDOADMIN 06:04 → JERBED 06:04 → JASUSAT 06:04
PROVIDERS: ATTEND Urology
PROC: 0TJB8ZZ Inspection of Bladder, Via Natural or Artificial Opening Endoscopic (ICD-10-PCS; 2017-06-17)
PROC: 0T9B00Z Drainage of Bladder with Drainage Device, Open Approach (ICD-10-PCS; principal; 2017-06-17 06:30)
DX: N35.8 Other urethral stricture (principal); R33.9 Retention of urine, unspecified; C61 Malignant neoplasm of prostate
CPT/HCPCS: 36415; 80053; 85025; 85610; 86850; 86900; 86901; 93005; 93010; 94760; 99282-25